=== PATIENT | female | born 1955 | race Hispanic/Latino ===

== ENCOUNTER → 2020-02-29 | Day surgery (SDC) | payer MEDICARE, OTHER ==
[2020-02-26 14:45] LABS: BASOPHILS % 0.2 % (0.0-1.0); EOSINOPHILS # (AUTO) 0.2 (0.0-0.4); EOSINOPHILS % 2.1 % (0.0-6.0); HEMATOCRIT 39.3 % (34.2-44.1); HEMOGLOBIN 12.2 g/dL (12.0-16.0); LYMPHOCYTES # (AUTO) 2.4 (1.0-3.2); LYMPHOCYTES % 25.9 % (18.0-39.1); MEAN CORPUSCULAR HEMOGLOBIN 28.6 pg (28-32); MEAN CORPUSCULAR VOLUME 92.3 fL (81-99); MONOCYTES # (AUTO) 0.8 (0.2-0.8); MONOCYTES % 8.1 % (4.4-11.3); NEUTROPHILS % 63.5 % (38.7-80.0); PLATELET COUNT 308 x10e3/uL (140-360); RED BLOOD COUNT 4.26 x10e6/uL (3.6-5.1); RED CELL DISTRIBUTION WIDTH 14.3 % (11.7-14.4)
[~2020-02-29] MED LIST: ASPIRIN81 MG PO; CICLOPIROX; CICLOPIROX15 GM TOP; FUROSEMIDE40 MG PO; LIDOCAINE HCL 2% LOCAL INJ 5 ML SDV VIAL INJ ONE; LOSARTAN POTASS25 MG PO; METFORMIN HCL500 MG PO; MIDAZOLAM HCL 2 MG/2 ML VIAL ONE; MONTELUKAST SOD10 MG PO; MYRBETRIQ25 MG PO; PROPOFOL IV EMULSION 10 MG/ML 20 ML VIAL ONE; SYMBICORT 16010.2 GM INH; VENTOLIN HFA18 GM INH
[2020-02-29 08:56] VITALS: BP 137/68
== END | disposition home or self-care (01) ==
LOC: OR 05:51
PROVIDERS: ATTEND Internal Medicine Gastroenterology
DX: K57.30 Diverticulosis of large intestine without perforation or abscess without bleeding (principal); K59.00 Constipation, unspecified; R14.0 Abdominal distension (gaseous); Z71.3 Dietary counseling and surveillance; E66.01 Morbid (severe) obesity due to excess calories; E11.9 Type 2 diabetes mellitus without complications; I10 Essential (primary) hypertension; J45.909 Unspecified asthma, uncomplicated; K76.0 Fatty (change of) liver, not elsewhere classified; G47.33 Obstructive sleep apnea (adult) (pediatric); Z88.5 Allergy status to narcotic agent; Z88.8 Allergy status to other drugs, medicaments and biological substances; Z68.41 Body mass index [BMI] 40.0-44.9, adult; Z79.82 Long term (current) use of aspirin; Z01.810 Encounter for preprocedural cardiovascular examination; Z01.812 Encounter for preprocedural laboratory examination; Z11.59 Encounter for screening for other viral diseases
CPT/HCPCS: 36415 ×2; 45378; 82948; 85025; 93005; J2001; J2250; J2704; U0002

== ENCOUNTER 2021-02-25 13:28 | Inpatient (IN) | payer MEDICARE, OTHER ==
[~2021-02-25] VITALS: Ht 157.5 cm; Wt 116.1 kg
[~2021-02-25 13:28] MED LIST changes: -LIDOCAINE HCL 2% LOCAL INJ 5 ML SDV VIAL INJ ONE; -MIDAZOLAM HCL 2 MG/2 ML VIAL ONE; -PROPOFOL IV EMULSION 10 MG/ML 20 ML VIAL ONE
[2021-02-25 13:52] LABS: BASOPHILS % 0.2 % (0.0-1.0); EOSINOPHILS # (AUTO) 0.1 (0.0-0.4); EOSINOPHILS % 1.4 % (0.0-6.0); HEMOGLOBIN 12.5 g/dL (12.0-16.0); LYMPHOCYTES # (AUTO) 1.7 (1.0-3.2); LYMPHOCYTES % 19.8 % (18.0-39.1); MEAN CORPUSCULAR HEMOGLOBIN 28.7 pg (28-32); MEAN CORPUSCULAR HGB CONC 31.3 g/dL (31-35); MONOCYTES % 11.9 % (4.4-11.3); NEUTROPHILS # (AUTO) 5.6 (2.1-6.9); NEUTROPHILS % 66.3 % (38.7-80.0); PLATELET COUNT 258 x10e3/uL (140-360); RED BLOOD COUNT 4.35 x10e6/uL (3.6-5.1); RED CELL DISTRIBUTION WIDTH 13.6 % (11.7-14.4)
[2021-02-25] MEDS ORDERED: ALBUTEROL/IPRATROPIUM 3 ML NEB NEB ONE (14:00)
[2021-02-25 14:13] LABS: ALBUMIN 3.4 g/dL (3.5-5.0); ALBUMIN/GLOBULIN RATIO 0.8 (0.8-2.0); ANION GAP 14.5 mmol/L (8-16); CALCIUM 8.8 mg/dL (8.4-10.2); CREATININE, SERUM 0.63 mg/dL (0.57-1.11); POTASSIUM 3.5 mmol/L (3.5-5.1)
[2021-02-25] MEDS ORDERED: ALBUTEROL/IPRATROPIUM 3 ML NEB ONE (14:40)
[2021-02-25] MEDS: ALBUTEROL/IPRATROPIUM 3 ML NEB NEB NR ×2 (14:55→17:24)
[2021-02-25] MEDS ORDERED: CEFTRIAXONE 1 GM VIAL IV ONE (15:00)
[2021-02-25] MEDS ORDERED: CEFTRIAXONE 1 GM in SODIUM CHLORIDE 0.9% 50ML 50 ML IV ONE (15:45)
[2021-02-25 16:33] VITALS: BP 132/74
[2021-02-25 16:36] VITALS: BP 132/74
[2021-02-25 16:37] VITALS: BP 132/74
[2021-02-25] MEDS: METHYLPREDNISOLONE SOD SUCC 40 MG/ML VIAL 1ML IV SCH ×2 (17:35→22:13)
[2021-02-25] MEDS: ALBUTEROL SULF 0.083% NEB SOLN 3 ML NEB NEB SCH ×2 (18:30→23:10)
[2021-02-25 19:41] VITALS: BP 132/74
[2021-02-25 20:14] VITALS: BP 136/76
[2021-02-25 23:36] VITALS: BP 123/78
[2021-02-26] VITALS (9 sets, daily range): BP systolic 101–146; BP diastolic 60–76
[2021-02-26] MEDS ORDERED: SIMETHICONE 80 MG CHEW PO PRN (01:30)
[2021-02-26] MEDS ORDERED: LIDOCAINE 4% PATCH TP PRN (01:30)
[2021-02-26] MEDS ORDERED: TRAMADOL HCL 50 MG TAB PO PRN (01:30)
[2021-02-26] MEDS ORDERED: POTASSIUM CHLORIDE 20 MEQ TAB CR PO PRN (01:30)
[2021-02-26] MEDS ORDERED: ONDANSETRON HCL INJ 2MG/ML 2ML 2 MG/ML VIAL IV PRN (01:30)
[2021-02-26] MEDS ORDERED: METHYLPREDNISOLONE SOD SUCC 40 MG/ML VIAL 1ML IV SCH (01:30)
[2021-02-26] MEDS ORDERED: HYDRALAZINE HCL 20 MG/ML VIAL IV PRN (01:30)
[2021-02-26] MEDS ORDERED: ALBUTEROL/IPRATROPIUM 3 ML NEB NEB PRN (01:30)
[2021-02-26] MEDS ORDERED: DIPHENHYDRAMINE HCL 25 MG CAP PO PRN (01:30)
[2021-02-26 05:02] LABS: BASOPHILS % 0.1 % (0.0-1.0); HEMATOCRIT 40.3 % (34.2-44.1); HEMOGLOBIN 12.4 g/dL (12.0-16.0); LYMPHOCYTES # (AUTO) 0.8 (1.0-3.2); LYMPHOCYTES % 10.9 % (18.0-39.1); MEAN CORPUSCULAR HGB CONC 30.8 g/dL (31-35); MEAN CORPUSCULAR VOLUME 94.2 fL (81-99); MONOCYTES # (AUTO) 0.2 (0.2-0.8); MONOCYTES % 2.4 % (4.4-11.3); NEUTROPHILS % 85.6 % (38.7-80.0); PLATELET COUNT 261 x10e3/uL (140-360); RED BLOOD COUNT 4.28 x10e6/uL (3.6-5.1); RED CELL DISTRIBUTION WIDTH 13.9 % (11.7-14.4)
[2021-02-26 05:27] LABS: ANION GAP 12.8 mmol/L (8-16); CREATININE, SERUM 0.64 mg/dL (0.57-1.11); POTASSIUM 3.8 mmol/L (3.5-5.1)
[2021-02-26] MEDS: PANTOPRAZOLE SOD 40 MG TABEC PO SCH (06:29)
[2021-02-26] MEDS: METHYLPREDNISOLONE SOD SUCC 40 MG/ML VIAL 1ML IV SCH ×3 (06:29→22:45)
[2021-02-26] MEDS: ALBUTEROL SULF 0.083% NEB SOLN 3 ML NEB NEB SCH ×5 (07:35→23:00)
[2021-02-26] MEDS ORDERED: SODIUM CHLORIDE 0.9% 250ML 250 ML ONE (09:12)
[2021-02-26] MEDS: ACETAMINOPHEN 325 MG TAB PO PRN ×2 (09:20→12:08)
[2021-02-26] MEDS: CEFTRIAXONE 2 GM in SODIUM CHLORIDE 0.9% 100 ML IV SCH (09:33)
[2021-02-26] MEDS ORDERED: DEXTROSE 50% SYRINGE 50 ML IV PRN (13:30)
[2021-02-26 14:14] LABS: ABG HCO3 35 mmol/L (22-26); ABG PCO2 58 mmHg (35-45); ABG PH 7.39 (7.35-7.45); ABG PO2 83 mmHg (80-105); ABG TCO2 37
[2021-02-26] MEDS: ENOXAPARIN SOD INJ 40 MG/0.4 ML SYR SC SCH (16:55)
[2021-02-26] MEDS: BUDESONIDE/FORMOTEROL 160/4.5MCG INHALER INH SCH (19:14)
[2021-02-26] MEDS: MELATONIN 5 MG TABLET PO PRN (20:29)
[2021-02-26] MEDS: DOCUSATE SODIUM 100 MG CAP PO PRN (23:11)
[2021-02-26] MEDS: BENZONATATE 100 MG CAP PO PRN (23:11)
[2021-02-27] VITALS (7 sets, daily range): BP systolic 109–142; BP diastolic 58–82
[2021-02-27] MEDS: ALBUTEROL SULF 0.083% NEB SOLN 3 ML NEB NEB SCH ×6 (02:23→23:37)
[2021-02-27 04:57] LABS: BASOPHILS % 0.1 % (0.0-1.0); HEMOGLOBIN 12.5 g/dL (12.0-16.0); LYMPHOCYTES # (AUTO) 1.2 (1.0-3.2); LYMPHOCYTES % 13.3 % (18.0-39.1); MEAN CORPUSCULAR HEMOGLOBIN 29.3 pg (28-32); MEAN CORPUSCULAR HGB CONC 31.3 g/dL (31-35); MEAN CORPUSCULAR VOLUME 93.9 fL (81-99); MONOCYTES # (AUTO) 0.7 (0.2-0.8); NEUTROPHILS # (AUTO) 7.2 (2.1-6.9); PLATELET COUNT 282 x10e3/uL (140-360); RED BLOOD COUNT 4.26 x10e6/uL (3.6-5.1); RED CELL DISTRIBUTION WIDTH 13.9 % (11.7-14.4)
[2021-02-27 05:16] LABS: ALBUMIN 3.1 g/dL (3.5-5.0); ALBUMIN/GLOBULIN RATIO 0.8 (0.8-2.0); ANION GAP 12.5 mmol/L (8-16); CALCIUM 9.3 mg/dL (8.4-10.2); CREATININE, SERUM 0.63 mg/dL (0.57-1.11); POTASSIUM 4.5 mmol/L (3.5-5.1)
[2021-02-27] MEDS: METHYLPREDNISOLONE SOD SUCC 40 MG/ML VIAL 1ML IV SCH ×2 (05:24→15:40)
[2021-02-27 05:40] LABS: THYROID STIMULATING HORMONE 0.208 uIU/mL (0.350-4.940)
[2021-02-27] MEDS: BUDESONIDE/FORMOTEROL 160/4.5MCG INHALER INH SCH ×3 (06:40→20:47)
[2021-02-27] MEDS: ASPIRIN 325 MG TAB PO SCH (08:33)
[2021-02-27] MEDS: CEFTRIAXONE 2 GM in SODIUM CHLORIDE 0.9% 100 ML IV SCH (08:33)
[2021-02-27] MEDS: LOSARTAN POTASSIUM 25 MG TAB PO SCH (08:34)
[2021-02-27] MEDS: PANTOPRAZOLE SOD 40 MG TABEC PO SCH (08:34)
[2021-02-27] MEDS: MONTELUKAST SODIUM 10 MG TAB PO SCH (08:34)
[2021-02-27] MEDS ORDERED: ONDANSETRON HCL 4 MG ORAL DISINTEGRATING TAB PO PRN (15:45)
[2021-02-27] MEDS: ENOXAPARIN SOD INJ 40 MG/0.4 ML SYR SC SCH (16:08)
[2021-02-27] MEDS: BENZONATATE 100 MG CAP PO PRN (20:14)
[2021-02-27] MEDS: MELATONIN 5 MG TABLET PO PRN (20:14)
[2021-02-27] MEDS: DOCUSATE SODIUM 100 MG CAP PO PRN (20:14)
[2021-02-28 00:40] VITALS: BP 100/67
[2021-02-28] MEDS: ALBUTEROL SULF 0.083% NEB SOLN 3 ML NEB NEB SCH ×6 (03:10→23:55)
[2021-02-28] MEDS: METHYLPREDNISOLONE SOD SUCC 40 MG/ML VIAL 1ML IV SCH ×4 (03:46→21:19)
[2021-02-28 05:49] VITALS: BP 118/76
[2021-02-28] MEDS: ACETYLCYSTEINE 20% INHAL SOLN 30 ML VIAL INH SCH ×2 (06:00→11:06)
[2021-02-28 06:13] LABS: ANION GAP 12.4 mmol/L (8-16); CREATININE, SERUM 0.63 mg/dL (0.57-1.11); POTASSIUM 4.4 mmol/L (3.5-5.1)
[2021-02-28] MEDS: BUDESONIDE/FORMOTEROL 160/4.5MCG INHALER INH SCH (07:00)
[2021-02-28] MEDS: PANTOPRAZOLE SOD 40 MG TABEC PO SCH (07:50)
[2021-02-28] MEDS: ASPIRIN 325 MG TAB PO SCH (07:50)
[2021-02-28] MEDS: CEFTRIAXONE 2 GM in SODIUM CHLORIDE 0.9% 100 ML IV SCH (07:50)
[2021-02-28] MEDS: LOSARTAN POTASSIUM 25 MG TAB PO SCH (07:51)
[2021-02-28] MEDS: MONTELUKAST SODIUM 10 MG TAB PO SCH (07:52)
[2021-02-28 09:03] VITALS: BP 139/80
[2021-02-28] MEDS: ALBUTEROL/IPRATROPIUM 3 ML NEB NEB NR (10:50)
[2021-02-28 12:14] VITALS: BP 154/86
[2021-02-28 15:58] VITALS: BP 125/61
[2021-02-28] MEDS: ENOXAPARIN SOD INJ 40 MG/0.4 ML SYR SC SCH (16:41)
[2021-02-28 20:21] VITALS: BP 117/63
[2021-02-28] MEDS: MELATONIN 5 MG TABLET PO PRN (20:38)
[2021-02-28] MEDS: BENZONATATE 100 MG CAP PO PRN (20:39)
[2021-03-01] VITALS (8 sets, daily range): BP systolic 115–146; BP diastolic 62–95
[2021-03-01] MEDS: ALBUTEROL SULF 0.083% NEB SOLN 3 ML NEB NEB SCH ×6 (04:20→23:19)
[2021-03-01 05:24] LABS: ANION GAP 15.4 mmol/L (8-16); CREATININE, SERUM 0.64 mg/dL (0.57-1.11); POTASSIUM 4.4 mmol/L (3.5-5.1)
[2021-03-01] MEDS: METHYLPREDNISOLONE SOD SUCC 40 MG/ML VIAL 1ML IV SCH ×3 (05:40→22:41)
[2021-03-01] MEDS: PANTOPRAZOLE SOD 40 MG TABEC PO SCH (09:00)
[2021-03-01] MEDS: ASPIRIN 325 MG TAB PO SCH (09:01)
[2021-03-01] MEDS: LOSARTAN POTASSIUM 25 MG TAB PO SCH (09:01)
[2021-03-01] MEDS: CEFTRIAXONE 2 GM in SODIUM CHLORIDE 0.9% 100 ML IV SCH (09:01)
[2021-03-01] MEDS: MONTELUKAST SODIUM 10 MG TAB PO SCH (09:02)
[2021-03-01] MEDS: ENOXAPARIN SOD INJ 40 MG/0.4 ML SYR SC SCH (16:48)
[2021-03-01] MEDS: DOCUSATE SODIUM 100 MG CAP PO PRN (20:18)
[2021-03-01] MEDS: BENZONATATE 100 MG CAP PO PRN (20:18)
[2021-03-01] MEDS: MELATONIN 5 MG TABLET PO PRN (20:18)
[2021-03-01] MEDS: BUDESONIDE/FORMOTEROL 160/4.5MCG INHALER INH SCH (23:20)
[2021-03-02] VITALS (8 sets, daily range): BP systolic 106–171; BP diastolic 59–86
[2021-03-02] MEDS: METHYLPREDNISOLONE SOD SUCC 40 MG/ML VIAL 1ML IV SCH ×2 (05:15→16:28)
[2021-03-02 06:36] LABS: BASOPHILS % 0.2 % (0.0-1.0); HEMATOCRIT 40.3 % (34.2-44.1); HEMOGLOBIN 12.2 g/dL (12.0-16.0); LYMPHOCYTES # (AUTO) 1.2 (1.0-3.2); LYMPHOCYTES % 14.5 % (18.0-39.1); MEAN CORPUSCULAR HEMOGLOBIN 28.9 pg (28-32); MEAN CORPUSCULAR HGB CONC 30.3 g/dL (31-35); MEAN CORPUSCULAR VOLUME 95.5 fL (81-99); MONOCYTES # (AUTO) 0.3 (0.2-0.8); MONOCYTES % 4.2 % (4.4-11.3); NEUTROPHILS # (AUTO) 6.4 (2.1-6.9); NEUTROPHILS % 78.9 % (38.7-80.0); PLATELET COUNT 315 x10e3/uL (140-360); RED BLOOD COUNT 4.22 x10e6/uL (3.6-5.1)
[2021-03-02] MEDS: ALBUTEROL SULF 0.083% NEB SOLN 3 ML NEB NEB SCH ×4 (07:00→13:55)
[2021-03-02 07:02] LABS: ALBUMIN 3.2 g/dL (3.5-5.0); ALBUMIN/GLOBULIN RATIO 0.9 (0.8-2.0); ANION GAP 12.5 mmol/L (8-16); CALCIUM 8.6 mg/dL (8.4-10.2); CREATININE, SERUM 0.63 mg/dL (0.57-1.11); POTASSIUM 4.5 mmol/L (3.5-5.1)
[2021-03-02] MEDS: BUDESONIDE/FORMOTEROL 160/4.5MCG INHALER INH SCH ×2 (07:30→08:45)
[2021-03-02] MEDS: PANTOPRAZOLE SOD 40 MG TABEC PO SCH (09:16)
[2021-03-02] MEDS: SENNA-S TABLET PO SCH ×2 (09:17→16:28)
[2021-03-02] MEDS: ASPIRIN 325 MG TAB PO SCH (09:17)
[2021-03-02] MEDS: LOSARTAN POTASSIUM 25 MG TAB PO SCH (09:17)
[2021-03-02] MEDS: CEFTRIAXONE 2 GM in SODIUM CHLORIDE 0.9% 100 ML IV SCH (09:17)
[2021-03-02] MEDS: MONTELUKAST SODIUM 10 MG TAB PO SCH (09:17)
[2021-03-02] MEDS: ENOXAPARIN SOD INJ 40 MG/0.4 ML SYR SC SCH (16:28)
[2021-03-03] VITALS (8 sets, daily range): BP systolic 130–165; BP diastolic 65–77
[2021-03-03] MEDS: ALBUTEROL SULF 0.083% NEB SOLN 3 ML NEB NEB SCH ×7 (02:12→22:04)
[2021-03-03] MEDS: METHYLPREDNISOLONE SOD SUCC 40 MG/ML VIAL 1ML IV SCH ×3 (05:36→19:33)
[2021-03-03] MEDS: BUDESONIDE/FORMOTEROL 160/4.5MCG INHALER INH SCH ×2 (07:05→21:58)
[2021-03-03] MEDS: PANTOPRAZOLE SOD 40 MG TABEC PO SCH (08:14)
[2021-03-03] MEDS: CEFTRIAXONE 2 GM in SODIUM CHLORIDE 0.9% 100 ML IV SCH ×2 (08:14→09:00)
[2021-03-03] MEDS: ASPIRIN 325 MG TAB PO SCH (08:15)
[2021-03-03] MEDS: LOSARTAN POTASSIUM 25 MG TAB PO SCH (08:15)
[2021-03-03] MEDS: SENNA-S TABLET PO SCH ×2 (08:16→17:34)
[2021-03-03] MEDS: MONTELUKAST SODIUM 10 MG TAB PO SCH (08:16)
[2021-03-03] MEDS: DOCUSATE SODIUM 100 MG CAP PO PRN (09:23)
[2021-03-03] MEDS ORDERED: CITRATE OF MAGNESIA 300ML BOTTLE PO ONE (10:45)
[2021-03-03] MEDS ORDERED: FUROSEMIDE INJ 10 MG/ML 4 ML VIAL IV ONE (14:00)
[2021-03-03] MEDS ORDERED: SODIUM CHLORIDE 0.9% 50ML 50 ML ONE (14:11)
[2021-03-03] MEDS ORDERED: IOPAMIDOL 370 MG/ML 200 ML INFUS..BTL INJ ONE (14:12)
[2021-03-03] MEDS: ENOXAPARIN SOD INJ 40 MG/0.4 ML SYR SC SCH (17:34)
[2021-03-03] MEDS: ACETAMINOPHEN 325 MG TAB PO PRN (23:37)
[2021-03-04] VITALS (8 sets, daily range): BP systolic 76–165; BP diastolic 53–82
[2021-03-04] MEDS: METHYLPREDNISOLONE SOD SUCC 40 MG/ML VIAL 1ML IV SCH ×2 (03:00→11:05)
[2021-03-04 05:36] LABS: BASOPHILS % 0.4 % (0.0-1.0); EOSINOPHILS % 0.1 % (0.0-6.0); HEMATOCRIT 40.4 % (34.2-44.1); HEMOGLOBIN 12.7 g/dL (12.0-16.0); LYMPHOCYTES # (AUTO) 3.1 (1.0-3.2); LYMPHOCYTES % 27.3 % (18.0-39.1); MEAN CORPUSCULAR HEMOGLOBIN 29.2 pg (28-32); MEAN CORPUSCULAR HGB CONC 31.4 g/dL (31-35); MEAN CORPUSCULAR VOLUME 92.9 fL (81-99); MONOCYTES # (AUTO) 1.2 (0.2-0.8); MONOCYTES % 10.2 % (4.4-11.3); NEUTROPHILS # (AUTO) 6.7 (2.1-6.9); NEUTROPHILS % 59.2 % (38.7-80.0); PLATELET COUNT 346 x10e3/uL (140-360); RED BLOOD COUNT 4.35 x10e6/uL (3.6-5.1); RED CELL DISTRIBUTION WIDTH 13.7 % (11.7-14.4)
[2021-03-04 05:52] LABS: ANION GAP 12.8 mmol/L (8-16); CALCIUM 8.1 mg/dL (8.4-10.2); CREATININE, SERUM 0.61 mg/dL (0.57-1.11); POTASSIUM 3.8 mmol/L (3.5-5.1)
[2021-03-04] MEDS: ALBUTEROL SULF 0.083% NEB SOLN 3 ML NEB NEB SCH ×3 (06:50→14:50)
[2021-03-04] MEDS: BUDESONIDE/FORMOTEROL 160/4.5MCG INHALER INH SCH (06:58)
[2021-03-04] MEDS: PANTOPRAZOLE SOD 40 MG TABEC PO SCH (09:26)
[2021-03-04] MEDS: LOSARTAN POTASSIUM 25 MG TAB PO SCH (09:27)
[2021-03-04] MEDS: CEFTRIAXONE 2 GM in SODIUM CHLORIDE 0.9% 100 ML IV SCH (09:27)
[2021-03-04] MEDS: ASPIRIN 325 MG TAB PO SCH (09:27)
[2021-03-04] MEDS: SENNA-S TABLET PO SCH ×2 (09:28→17:00)
[2021-03-04] MEDS: MONTELUKAST SODIUM 10 MG TAB PO SCH (09:28)
[2021-03-04] MEDS: ENOXAPARIN SOD INJ 40 MG/0.4 ML SYR SC SCH (17:00)
== END 2021-03-04 18:48 | disposition home or self-care (01) | DRG 202 ==
LOC: ER 14:00 → ERHOLD 15:09 → MED/SURG2 15:59 → OBSVTOIN 02-27 12:42
PROVIDERS: ADMIT Internal Medicine; ATTEND Internal Medicine
DX: J45.902 Unspecified asthma with status asthmaticus (principal); J96.01 Acute respiratory failure with hypoxia; Z68.42 Body mass index [BMI] 45.0-49.9, adult; G47.33 Obstructive sleep apnea (adult) (pediatric); E11.9 Type 2 diabetes mellitus without complications; I10 Essential (primary) hypertension; E66.01 Morbid (severe) obesity due to excess calories; K59.00 Constipation, unspecified; Z91.19 Patient's noncompliance with other medical treatment and regimen; Z20.822 Contact with and (suspected) exposure to COVID-19
CPT/HCPCS: 36415; 36600; 71045; 71046; 71260; 80048; 80053; 82805; 82948; 83036; 83605; 83735; 84443; 84484; 85025; 87040; 93005; 94060; 94640; 94664; 96360; 99284; G0378; J0456; J0696; J1650; J1940; J2920; J7050; Q9967; U0002

== ENCOUNTER 2022-03-13 16:21 | Emergency (ER) | payer MEDICARE, OTHER ==
[~2022-03-13] VITALS: Ht 157.5 cm; Wt 116.1 kg
[2022-03-13] MEDS ORDERED: KETOROLAC TROMETHAMINE 30 MG/ML VIAL IV STA (17:26)
[2022-03-13] MEDS ORDERED: Morphine 4mg INJECTION 4 MG/ML INJ IV ONE (17:30)
[2022-03-13 17:41] LABS: BASOPHILS % 0.2 % (0.0-1.0); EOSINOPHILS % 0.4 % (0.0-6.0); LYMPHOCYTES % 9.3 % (18.0-39.1); MEAN CORPUSCULAR HEMOGLOBIN 29.5 pg (28-32); MEAN CORPUSCULAR HGB CONC 30.2 g/dL (31-35); MEAN CORPUSCULAR VOLUME 97.5 fL (81-99); MONOCYTES # (AUTO) 0.6 (0.2-0.8); MONOCYTES % 5.3 % (4.4-11.3); NEUTROPHILS # (AUTO) 8.8 (2.1-6.9); NEUTROPHILS % 84.4 % (38.7-80.0); PLATELET COUNT 285 x10e3/uL (140-360); RED BLOOD COUNT 4.41 x10e6/uL (3.6-5.1); RED CELL DISTRIBUTION WIDTH 13.5 % (11.7-14.4)
[2022-03-13 17:53] LABS: ALANINE AMINOTRANSFERASE 14 IU/L (0-55); ALBUMIN 3.6 g/dL (3.5-5.0); ALBUMIN/GLOBULIN RATIO 0.8 (0.8-2.0); ALKALINE PHOSPHATASE 107 IU/L (40-150); BLOOD UREA NITROGEN 11 mg/dL (7-26); BUN/CREATININE RATIO 17 (6-25); CARBON DIOXIDE 28 mmol/L (22-29); CHLORIDE 103 mmol/L (98-107); CREATINE KINASE 52 IU/L (29-168); CREATININE, SERUM 0.63 mg/dL (0.57-1.11); GLUCOSE 122 mg/dL (74-118); SODIUM 141 mmol/L (136-145)
[2022-03-13 17:55] LABS: CALCIUM 9.6 mg/dL (8.4-10.2)
[2022-03-13 19:59] LABS: CLARITY,URINE SL CLOUDY (CLEAR); COLOR,URINE YELLOW (YELLOW); KETONES,URINE NEGATIVE (NEGATIVE); LEUKOCYTE ESTERASE ,URINE NEGATIVE (NEGATIVE); NITRITE,URINE NEGATIVE (NEGATIVE); PROTEIN,URINE DIPSTICK 1+ (NEGATIVE); URINE UROBILINOGEN 0.2 mg/dL (0.2 - 1)
[2022-03-13 20:12] LABS: BACTERIA,URINE MANY /HPF; EPITHELIAL CELLS,URINE MANY /LPF; MUCUS,URINE MANY (RARE); RBC,URINE >50 /HPF (0-5)
[2022-03-13 20:14] VITALS: BP 144/81
[2022-03-13] MEDS ORDERED: CEFDINIR300 MG PO (20:21)
[2022-03-13] MEDS ORDERED: CEFDINIR 300 MG CAP PO ONE (20:30)
[2022-03-13] MEDS ORDERED: CEFDINIR 300 MG CAP ONE (20:35)
== END 2022-03-13 20:38 | disposition home or self-care (01) ==
LOC: ER 16:50
DX: R10.31 Right lower quadrant pain (principal); N30.90 Cystitis, unspecified without hematuria; M54.50 Low back pain, unspecified; E11.65 Type 2 diabetes mellitus with hyperglycemia; I10 Essential (primary) hypertension; J45.909 Unspecified asthma, uncomplicated
CPT/HCPCS: 36415; 74176; 80053; 81001; 82550; 82553; 84484; 85025; 93005; 99284; J1885; J2270

== ENCOUNTER 2024-01-22 11:02 | Emergency (ER) | payer MEDICARE, OTHER ==
[~2024-01-22] VITALS: Ht 157.5 cm; Wt 113.4 kg
[~2024-01-22 11:02] MED LIST changes: +CEFDINIR300 MG PO
[2024-01-22] MEDS: SODIUM CHLORIDE 0.9% 1000ML 1,000 ML IV STA (13:59)
[2024-01-22] MEDS: METHYLPREDNISOLONE SOD SUCC 125 MG/2ML VIAL IV ONE (13:59)
[2024-01-22] MEDS: ALBUTEROL/IPRATROPIUM 3 ML NEB NEB ONE (13:59)
[2024-01-22] MEDS: MAGNESIUM SULFATE 2GM/50ML 50 ML IV ONE (13:59)
[2024-01-22 14:55] VITALS: PULSE 77; RESP 23; TEMP 98.3
[2024-01-22 15:00] VITALS: PULSE 61; RESP 22; O2SAT 95
== END 2024-01-22 15:40 | disposition other institution (70) ==
LOC: FSED 11:10
DX: R09.02 Hypoxemia (principal); J45.901 Unspecified asthma with (acute) exacerbation; E87.0 Hyperosmolality and hypernatremia; J20.9 Acute bronchitis, unspecified; R73.03 Prediabetes; R73.9 Hyperglycemia, unspecified; I10 Essential (primary) hypertension; E78.5 Hyperlipidemia, unspecified; Z11.52 Encounter for screening for COVID-19; R94.31 Abnormal electrocardiogram [ECG] [EKG]
CPT/HCPCS: 0223U; 71250; 80053; 82553; 83880; 84484; 85025; 87400; 93005; 99284; J2919; J3475; J7030

== ENCOUNTER 2024-08-30 19:29 | Emergency (ER) | payer MEDICARE ==
[~2024-08-30] VITALS: Ht 157.5 cm; Wt 120.7 kg
[2024-08-30 19:49] VITALS: RESP 22; TEMP 97.8
[2024-08-30] MEDS: PREDNISONE 20 MG TAB PO ONE (20:59)
[2024-08-30] MEDS: DIPHENHYDRAMINE HCL 25 MG CAP PO ONE (20:59)
[2024-08-30] MEDS: FAMOTIDINE 20 MG TAB PO ONE (20:59)
[2024-08-30 22:37] VITALS: PULSE 66
[2024-08-30] MEDS ORDERED: METHOCARBAMOL750 MG PO (22:38)
[2024-08-30] MEDS ORDERED: PREDNISONE50 MG PO (22:38)
[2024-08-30 22:53] VITALS: BP 156/72; O2SAT 95
== END 2024-08-30 22:49 | disposition home or self-care (01) ==
LOC: FSED 19:34
DX: M54.50 Low back pain, unspecified (principal); M48.061 Spinal stenosis, lumbar region without neurogenic claudication; T36.1X5A Adverse effect of cephalosporins and other beta-lactam antibiotics, initial encounter; I10 Essential (primary) hypertension; E11.9 Type 2 diabetes mellitus without complications; J45.909 Unspecified asthma, uncomplicated
CPT/HCPCS: 72131; 74176; 80048; 80076; 81003; 82553; 85025; 99283; J7512

== ENCOUNTER → 2024-09-15 | Outpatient (REF) | payer MEDICARE ==
[~2024-09-15] MED LIST changes: +METHOCARBAMOL750 MG PO; +PREDNISONE50 MG PO
== END ==
LOC: NM 08:32
PROVIDERS: ATTEND Internal Medicine Gastroenterology
DX: E11.9 Type 2 diabetes mellitus without complications (principal); R14.0 Abdominal distension (gaseous); K58.1 Irritable bowel syndrome with constipation; K44.9 Diaphragmatic hernia without obstruction or gangrene; K57.30 Diverticulosis of large intestine without perforation or abscess without bleeding; I10 Essential (primary) hypertension; K21.9 Gastro-esophageal reflux disease without esophagitis; Z68.42 Body mass index [BMI] 45.0-49.9, adult; Z71.3 Dietary counseling and surveillance; Z78.9 Other specified health status
CPT/HCPCS: 78264; A9541

== ENCOUNTER 2025-02-14 15:35 | Emergency (ER) | payer MEDICARE ==
[~2025-02-14] VITALS: Ht 157.5 cm; Wt 120.7 kg
[2025-02-14] MEDS: KETOROLAC TROMETHAMINE 60 MG/2 ML VIAL IM ONE (16:44)
[2025-02-14 17:25] VITALS: PULSE 65; RESP 18; TEMP 97.6; O2SAT 96
== END 2025-02-14 17:25 | disposition home or self-care (01) ==
LOC: FSED 15:49
DX: M25.562 Pain in left knee (principal); S86.812A Strain of other muscle(s) and tendon(s) at lower leg level, left leg, initial encounter; X50.1XXA Overexertion from prolonged static or awkward postures, initial encounter; Y92.89 Other specified places as the place of occurrence of the external cause; I10 Essential (primary) hypertension; E11.9 Type 2 diabetes mellitus without complications; E78.5 Hyperlipidemia, unspecified; K21.9 Gastro-esophageal reflux disease without esophagitis; J45.909 Unspecified asthma, uncomplicated
CPT/HCPCS: 73562; 96372; 99283; J1885